=== PATIENT | female | born 1995 | race Two or more races ===

== ENCOUNTER → 2018-10-31 | Emergency (ER) | payer SELFPAY ==
[~2018-10-31] VITALS: Ht 167.6 cm; Wt 98.0 kg
[~2018-10-31] MED LIST: CT SWABBABLE VALVE TRANS SET 1 EA INFUS.SET MC ONE; IOHEXOL-300 100 ML VIAL IV ONE; IV NS 0.9% 1,000 ML IV ONE; IV NS 0.9% 250 ML IV ONE; LIDOCAINE 0.5% HCL 50 ML VIAL ONE; LIDOCAINE 1% INJ 50 ML MDV IJ ONE; MORPHINE SULFATE INJ 2 MG/ML DISP.SYRIN IV ONE; MORPHINE SULFATE INJ 4 MG/ML DISP.SYRIN ONE; ONDANSETRON HCL/PF 4 MG/2 ML VIAL IV ONE; ONDANSETRON HCL/PF 4 MG/2 ML VIAL ONE
[2018-10-31 06:01] VITALS: BP 133/76
[2018-10-31 06:01] LABS: BASOPHILS % (AUTO) 0.3 % (0.0-2.0); EOSINOPHILS % (AUTO) 3.2 % (0.0-6.0); HEMATOCRIT 38 % (33-45); HEMOGLOBIN 12.6 g/dL (11.5-14.8); LYMPHOCYTES # (AUTO) 2.1 /CMM (0.8-4.8); LYMPHOCYTES % (AUTO) 21.1 % (20.0-44.0); MEAN CORPUSCULAR HGB CONC 34 g/dl (31.0-36.0); MEAN CORPUSCULAR VOLUME 93 fL (82-100); MONOCYTES # (AUTO) 0.7 /CMM (0.1-1.30); MONOCYTES % (AUTO) 7.3 % (2.0-12.0); NEUTROPHILS # (AUTO) 6.7 /CMM (1.8-8.9); NEUTROPHILS % (AUTO) 68.1 % (43.0-81.0); PLATELET COUNT (AUTO) 310 /CMM (150-450); RED BLOOD CELL COUNT(AUTO) 4.03 MIL/uL (4.0-5.2); WHITE BLOOD COUNT (AUTO) 9.9 K/uL (4.3-11.0)
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
[2018-10-31 06:22] LABS: CALCIUM, SERUM 8.9 mg/dL (8.5-10.1); POTASSIUM 3.7 mmol/L (3.5-5.1)
--- NOTE | 2018-10-31 06:22 | NUR ---
UNABLE TO COLLECT URINE AT THIS TIME. WILL TRY AGAIN ONCE PATIENT RETURNS FROM CT
--- NOTE | 2018-10-31 06:23 | NUR ---
PATIENT TAKEN TO RADIOLOGY
[2018-10-31 06:37] LABS: ALBUMIN 3.7 g/dL (3.4-5.0); BILIRUBIN,DIRECT 0.1 mg/dL (0.0-0.2); BILIRUBIN,TOTAL 0.1 mg/dL (0.2-1.0); TOTAL PROTEIN, SERUM 7.4 g/dL (6.4-8.2)
--- NOTE | 2018-10-31 07:12 | NUR ---
unable to get urine sample.
--- NOTE | 2018-10-31 07:44 | NUR ---
PATIENTAWAKE ALERT NOTED LAC TO LIP ,DR. REDD @ BEDSIDE ,HER FAMILY @ BEDSIDE MADE AWARE PLAN OF CARE
--- NOTE | 2018-10-31 08:38 | NUR ---
PATIENT AWAKE ALERT ABLE TO AMBULATED TO BATHROOM NON DIZZY VITALS TAKE AND FILED
--- NOTE | 2018-10-31 09:00 | NUR ---
Patient discharged to home in stable condition. Written and verbal after care instructions given. Patient verbalizes understanding of instruction.
--- NOTE | 2018-10-31 09:00 | NUR ---
Nicole lino in EDM - 10/31/18 at 0957 by POPEYE PATIENT AWAKE ALERT NOTED CHASTITY TO LOWER LIP DRYAND CLEAN AGREES TO FOLLOW UP PMD IN 2 DAYS FOR WOUND CARE
== END | disposition home or self-care (01) ==
LOC: ER 05:16
DX: S02.5XXA Fracture of tooth (traumatic), initial encounter for closed fracture (principal); S01.511A Laceration without foreign body of lip, initial encounter; S30.1XXA Contusion of abdominal wall, initial encounter; R51 Headache; V03.99XA Pedestrian with other conveyance injured in collision with car, pick-up truck or van, unspecified whether traffic or nontraffic accident, initial encounter; Y93.89 Activity, other specified; Y92.89 Other specified places as the place of occurrence of the external cause; Y99.8 Other external cause status
CPT/HCPCS: 12015; 36415; 70450; 70486; 71045; 72125; 74177; 80048; 80076; 84702; 85025; 85730; 86850; 96374; 96375; 99284; A6403; J2270; J2405; J3490; J7030; J7050; L0172; Q9967